=== PATIENT | female | born 1960 | race American Indian/Alaskan Native ===

== ENCOUNTER 2017-07-21 09:36 | Emergency (ER) | payer BC ==
[2017-07-21 09:43] VITALS: BP 153/96
[2017-07-21 10:11] LABS: Bilirubin,Urine NEG (Negative); Blood,Urine NEG (Negative); Color,Urine Yellow (Yellow); Mucus,Urine 1+ /HPF; Protein,Urine <15 mg/dL mg/dL (Negative); Urobilinogen,Urine < 2.0 mg/dL (<2.0)
[2017-07-21] MEDS ORDERED: MOTRIN PO ONE (11:44)
--- NOTE | 2017-07-21 11:47 | Emergency Department Report ---
ED Back Pain/Injury HPI - General Chief Complaint: Back Pain/Injury Stated Complaint: BACK PAIN RADIATING DOWN LEG Time Seen by Provider: 07/21/17 11:31 Source: patient Limitations: No Limitations - History of Present Illness Initial Comments: 57-year-old female past medical history hypothyroidism, sciatica, anxiety, hyperlipidemia and history of thyroidectomy presents with complaint of 3-4 days of left-sided lower back pain radiating to left leg. Patient denies any recent falls or trauma denies any saddle paresthesias denies any bladder or bowel incontinence. Denies dysuria or increased frequency or foul odor. Patient is awake alert oriented 3. States she has had flares of back pain in the past several times. MD Complaint: back pain Onset/Timin -: days(s) Radiation: buttocks, left leg Severity: moderate Severity scale (0 -10): 7 Quality: aching Consistency: constant Improves With: none - Related Data Home Medications Medication Instructions Recorded Confirmed Last Taken Levothyroxine [Synthroid] 75 mcg PO QAM 06/20/13 06/07/14 06/20/13 09:00 Lovastatin [Altoprev] 40 mg PO QPM 06/20/13 06/07/14 06/20/13 09:00 NIFEdipine [NIFEdipine ER] 60 mg PO DAILY 06/20/13 06/07/14 06/20/13 09:00 Triamter/Hctz 37.5-25 mg 1 cap PO DAILY 06/20/13 06/07/14 06/20/13 09:00 [Maxzide-25] Previous Rx's Medication Instructions Recorded Last Taken Type Naproxen [Naprosyn] 500 mg PO BID #30 tablet 06/21/13 Unknown Rx Ondansetron [Zofran Odt] 4 mg PO Q4H #14 tab.rapdis 06/21/13 Unknown Rx methOCARBAMOL [Robaxin] 500 mg PO BID #30 tab 06/21/13 Unknown Rx Fluticasone Propionate [Flonase] 2 sprays NS QDAY #1 spray 03/20/14 Unknown Rx Ibuprofen [Motrin] 600 mg PO Q8H PRN #60 tablet 03/20/14 Unknown Rx traMADol [Ultram 50 MG tab] 50 mg PO Q6HR PRN #20 tablet 03/20/14 Unknown Rx Meclizine [Antivert] 25 mg PO TID PRN #20 tablet 03/21/14 Unknown Rx Potassium Chloride [K-Dur] 10 meq PO QDAY #5 tablet 06/07/14 Unknown Rx Cyclobenzaprine [Flexeril] 10 mg PO TID PRN #20 tablet 07/21/17 Unknown Rx Naproxen [Naprosyn TAB] 375 mg PO BID PRN #30 tablet 07/21/17 Unknown Rx Nitrofurantoin Monohyd/M-Cryst 100 mg PO BID #6 capsule 07/21/17 Unknown Rx [Macrobid 100 mg Capsule] Allergies Allergy/AdvReac Type Severity Reaction Status Date / Time sulfamethoxazole Allergy Hives Verified 03/20/14 10:36 [From Bactrim] trimethoprim [From Bactrim] Allergy Hives Verified 03/20/14 10:36 ED Review of Systems ROS: Stated complaint: BACK PAIN RADIATING DOWN LEG Other details as noted in HPI Constitutional: denies: chills, fever Eyes: denies: eye pain, eye discharge, vision change ENT: denies: ear pain, throat pain Respiratory: denies: cough, shortness of breath, wheezing Cardiovascular: denies: chest pain, palpitations Endocrine: no symptoms reported Gastrointestinal: denies: abdominal pain, nausea, diarrhea Genitourinary: denies: urgency, dysuria, discharge Musculoskeletal: back pain. denies: joint swelling, arthralgia Skin: denies: rash, lesions Neurological: denies: headache, weakness, paresthesias Psychiatric: denies: anxiety, depression Hematological/Lymphatic: denies: easy bleeding, easy bruising ED Past Medical Hx - Past Medical History Previous Medical History?: Yes Hx Hypertension: Yes Hx Psychiatric Treatment: Yes (Anxiety) Additional medical history: hypothyroid high cholest - Surgical History Past Surgical History?: Yes Additional Surgical History: hysterectomy. THYROIDECTOMY - Social History Smoking Status: Never Smoker Substance Use Type: None - Medications Home Medications: Home Medications Medication Instructions Recorded Confirmed Last Taken Type Levothyroxine [Synthroid] 75 mcg PO QAM 06/20/13 06/07/14 06/20/13 09:00 History Lovastatin [Altoprev] 40 mg PO QPM 06/20/13 06/07/14 06/20/13 09:00 History NIFEdipine [NIFEdipine ER] 60 mg PO DAILY 06/20/13 06/07/14 06/20/13 09:00 History Triamter/Hctz 37.5-25 mg 1 cap PO DAILY 06/20/13 06/07/14 06/20/13 09:00 History [Maxzide-25] Naproxen [Naprosyn] 500 mg PO BID #30 tablet 06/21/13 06/07/14 Unknown Rx Ondansetron [Zofran Odt] 4 mg PO Q4H #14 tab.rapdis 06/21/13 06/07/14 Unknown Rx methOCARBAMOL [Robaxin] 500 mg PO BID #30 tab 06/21/13 06/07/14 Unknown Rx Fluticasone Propionate [Flonase] 2 sprays NS QDAY #1 spray 03/20/14 06/07/14 Unknown Rx Ibuprofen [Motrin] 600 mg PO Q8H PRN #60 tablet 03/20/14 06/07/14 Unknown Rx traMADol [Ultram 50 MG tab] 50 mg PO Q6HR PRN #20 tablet 03/20/14 06/07/14 Unknown Rx Meclizine [Antivert] 25 mg PO TID PRN #20 tablet 03/21/14 06/07/14 Unknown Rx Potassium Chloride [K-Dur] 10 meq PO QDAY #5 tablet 06/07/14 Unknown Rx Cyclobenzaprine [Flexeril] 10 mg PO TID PRN #20 tablet 07/21/17 Unknown Rx Naproxen [Naprosyn TAB] 375 mg PO BID PRN #30 tablet 07/21/17 Unknown Rx Nitrofurantoin Monohyd/M-Cryst 100 mg PO BID #6 capsule 07/21/17 Unknown Rx [Macrobid 100 mg Capsule] ED Physical Exam - General Limitations: No Limitations General appearance: alert, in no apparent distress - Head Head exam: Present: atraumatic, normocephalic - Eye Eye exam: Present: normal appearance, PERRL, EOMI - ENT ENT exam: Present: mucous membranes moist - Neck Neck exam: Present: normal inspection, full ROM - Respiratory Respiratory exam: Present: normal lung sounds bilaterally. Absent: respiratory distress - Cardiovascular Cardiovascular Exam: Present: regular rate, normal rhythm. Absent: systolic murmur, diastolic murmur, rubs, gallop - GI/Abdominal GI/Abdominal exam: Present: soft (abdomen soft nontender nondistended), normal bowel sounds - Extremities Exam Extremities exam: Present: normal inspection - Back Exam Back exam: Present: normal inspection, full ROM - Expanded Back Exam Expanded Back exam: Positive Straight Leg Raise: Left (at 30) - Neurological Exam Neurological exam: Present: alert, oriented X3, CN II-XII intact, normal gait - Psychiatric Psychiatric exam: Present: normal affect, normal mood - Skin Skin exam: Present: warm, dry, intact, normal color. Absent: rash ED Course Vital Signs 07/21/17 07/21/17 09:40 11:49 Temperature 98.4 F Pulse Rate 66 Respiratory 20 18 Rate Blood Pressure 153/96 O2 Sat by Pulse 96 Oximetry ED Medical Decision Making - Medical Decision Making A/P: Asymptomatic bacteriuria, lower back pain 1- naproxen and flexeril prn. No symptoms of cauda equina patient is ambulatory without assistance. 2- Macrobid 3 day course as urine only shows moderate leukocyte esterase nitrites no significant bacteria 3-follow up with primary care doctor Critical care attestation.: If time is entered above; I have spent that time in minutes in the direct care of this critically ill patient, excluding procedure time. ED Disposition Clinical Impression: Asymptomatic bacteriuria Lower back pain Qualifiers: Chronicity: acute Back pain laterality: left Sciatica presence: with sciatica Sciatica laterality: sciatica of left side Qualified Code(s): M54.42 - Lumbago with sciatica, left side Disposition: TO HOME OR SELFCARE Is pt being admited?: No Does the pt Need Aspirin: No Condition: Stable Instructions: Urinary Tract Infection in Women (ED), Sciatica (ED), Dysuria (ED ) Prescriptions: Cyclobenzaprine [Flexeril] 10 mg PO TID PRN #20 tablet PRN Reason: Muscle Spasm Naproxen [Naprosyn TAB] 375 mg PO BID PRN #30 tablet PRN Reason: Pain Nitrofurantoin Monohyd/M-Cryst [Macrobid 100 mg Capsule] 100 mg PO BID #6 capsule Referrals: TOSHA BARRON MD [Primary Care Provider] - 3-5 Days [facility] [Outside] - 3-5 Days [facility] [Outside] - 3-5 Days Time of Disposition: 11:48
== END 2017-07-21 11:57 | disposition home or self-care (01) ==
LOC: ED 09:36
DX: N39.0 Urinary tract infection, site not specified (principal); M54.42 Lumbago with sciatica, left side; F41.9 Anxiety disorder, unspecified; E78.5 Hyperlipidemia, unspecified; E89.0 Postprocedural hypothyroidism; Z88.8 Allergy status to other drugs, medicaments and biological substances
CPT/HCPCS: 81001; 99283

== ENCOUNTER 2021-02-21 08:49 | Outpatient (CLI) | payer OTHER ==
--- NOTE | 2021-02-21 11:37 | Mammography Report ---
DIGITAL SCREENING MAMMOGRAM WITH CAD, 02/21/2021 CLINICAL INFORMATION / INDICATION: Routine screening mammography. TECHNIQUE: Digital bilateral 2D mammography was obtained in the craniocaudal and mediolateral obliqu e projections. This examination was interpreted with the benefit of Computer-Aided Detection analysis . COMPARISON: None available FINDINGS: Breast Density: There are scattered areas of fibroglandular density. No dominant mass, suspicious calcifications, or architectural distortion in either breast. IMPRESSION: No mammographic evidence of malignancy. Follow up recommendation: Routine yearly BI-RADS Category 1: Negative. A "normal" or negative report should not discourage follow up or biopsy of a clinically significant f inding. A written summary of these findings will be mailed to the patient. The patient will be entered into a mammography reporting system which will generate a reminder letter for the patient's next appointmen t at the appropriate interval. The [employer] recommends yearly mammograms starting at age 40 and continuing as l iain as a woman is in good health. Breast MRI is recommended for women with an approximate 20-25% or greater lifetime risk of breast cancer, including women with a strong family history of breast or ova ronaldo cancer or who have been treated for Hodgkin's disease. Signer Name: Melodie Smith MD Signed: 02/21/2021 11:33 AM Workstation Name: [id number]
== END 2021-02-21 08:50 | disposition home or self-care (01) ==
LOC: MAMMO 08:49
PROVIDERS: ATTEND Family Medicine Adult Medicine
DX: Z12.31 Encounter for screening mammogram for malignant neoplasm of breast (principal)
CPT/HCPCS: 77067